=== PATIENT | male | born 1985 | race Caucasian/White ===

== ENCOUNTER 2016-11-30 00:30 | Emergency (ER) | payer MEDICAID ==
[~2016-11-30] VITALS: Ht 185.4 cm; Wt 110.0 kg
[~2016-11-30 00:30] MED LIST: ALBU17I INH; IBUP800T23 PO
[2016-11-30 00:33] VITALS: BP 151/81; PULSE 126; RESP 16; TEMP 100; O2SAT 100
[2016-11-30] MEDS ORDERED: SODIUM CHLOR 0.9% 1000 ML INJ 1,000 ML IV ONE (01:00)
[2016-11-30 01:21] LABS: AUTOMATED NEUTROPHIL # 6.5 TH/MM3 (1.8-7.7); BASOPHIL # 0.1 TH/MM3 (0-0.2); BASOPHIL % 0.5 % (0.0-2.0); EOSINOPHIL % 0.4 % (0.0-4.0); HEMATOCRIT 46.9 % (39.0-51.0); HEMO FLAGS DIFF FINAL; LYMPH % 30.5 % (9.0-44.0); LYMPHOCYTE # 3.1 TH/MM3 (1.0-4.8); MEAN CELL VOLUME 89.1 FL (80.0-100.0); MEAN CORPUSCULAR HEMOGLOBIN 31.2 PG (27.0-34.0); NEUT % 64.6 % (16.0-70.0); PLATELET COUNT 157 TH/MM3 (150-450); RED BLOOD COUNT 5.26 MIL/MM3 (4.50-5.90); RED CELL DISTRIBUTION WIDTH 12.7 % (11.6-17.2); WHITE BLOOD COUNT 10.1 TH/MM3 (4.0-11.0)
[2016-11-30 01:26] LABS: ALCOHOL LESS THAN 3 MG/DL (0-5); ANION GAP 8 MEQ/L (5-15); BICARBONATE 27.3 MEQ/L (21.0-32.0); BLOOD UREA NITROGEN 18 MG/DL (7-18); CHLORIDE 106 MEQ/L (98-107); GLOMERULAR FILTRATION RATE 83 ML/MIN (>89); POTASSIUM 3.8 MEQ/L (3.5-5.1); SODIUM (NA) 141 MEQ/L (136-145)
--- NOTE | 2016-11-30 01:44 | PD ---
HPI Chief Complaint: Psychiatric Symptoms Time Seen by Provider: 00:46 Travel History International Travel<30 days: No Contact w/Intl Traveler<30days: No Traveled to known affect area: No History of Present Illness HPI 31-year-old male with history of bipolar, not on medication, presents to emergency department requesting psychiatric resources. Patient states he has been dealing with depression and anger for a long time. Denies suicidal or homicidal ideations, but would like some information on resources. He states that he is very anxious being here. He does smoke marijuana and tobacco cigarettes. He has no medical symptoms to report. PFSH Past Medical History Asthma: Yes (SPORTS INDUCED) Bipolar Disorder: Yes Psychiatric: Yes (ODD) Respiratory: Yes (asthma) Tetanus Vaccination: Unknown Influenza Vaccination: No Past Surgical History Tonsillectomy: Yes (T&A) Social History Alcohol Use: Yes Tobacco Use: Yes Substance Use: Yes Allergies-Medications (Allergen,Severity, Reaction): Coded Allergies: haloperidol (Unverified Allergy, Severe, 10/20/16) ziprasidone (Verified Allergy, Unknown, 11/30/16) Reported Meds & Prescriptions Reported Meds & Active Scripts Active Ibuprofen 800 Mg Tab 800 Mg PO TID PRN Reported Proventil Mdi (Albuterol Sulfate) 17 Gm Aero 1 Puff INH Review of Systems Except as stated in HPI: all other systems reviewed are Neg Physical Exam Narrative GENERAL: Well-nourished male patient, in no acute distress. SKIN: Focused skin assessment warm/dry. HEAD: Atraumatic. Normocephalic. EYES: Pupils equal and round. No scleral icterus. No injection or drainage. ENT: No nasal bleeding or discharge. Mucous membranes pink and moist. NECK: Trachea midline. No JVD. CARDIOVASCULAR: Tachycardic rate and rhythm. No murmur appreciated. RESPIRATORY: No accessory muscle use. Clear to auscultation. Breath sounds equal bilaterally. GASTROINTESTINAL: Abdomen soft, non-tender, nondistended. Hepatic and splenic margins not palpable. MUSCULOSKELETAL: No obvious deformities. No clubbing. No cyanosis. No edema. NEUROLOGICAL: Awake and alert. No obvious cranial nerve deficits. Motor grossly within normal limits. Normal speech. PSYCHIATRIC: Appropriate mood and affect; insight and judgment normal. Data Data Last Documented VS Vital Signs Date Time Temp Pulse Resp B/P (MAP) Pulse Ox O2 Delivery O2 Flow Rate FiO2 11/30/16 01:59 92 20 97 Room Air 11/30/16 00:33 100.0 Orders Orders Complete Blood Count With Diff (11/30/16 00:46) Basic Metabolic Panel (Bmp) (11/30/16 00:46) Iv Access Insert/Monitor (11/30/16 00:46) Ecg Monitoring (11/30/16 00:46) Drug Screen, Random Urine (11/30/16 00:46) Alcohol (Ethanol) (11/30/16 00:46) Sodium Chlor 0.9% 1000 Ml Inj (Ns 1000 M (11/30/16 01:00) Labs Laboratory Tests Test 11/30/16 01:00 11/30/16 01:05 White Blood Count 10.1 TH/MM3 Red Blood Count 5.26 MIL/MM3 Hemoglobin 16.4 GM/DL Hematocrit 46.9 % Mean Corpuscular Volume 89.1 FL Mean Corpuscular Hemoglobin 31.2 PG Mean Corpuscular Hemoglobin Concent 35.0 % Red Cell Distribution Width 12.7 % Platelet Count 157 TH/MM3 Mean Platelet Volume 9.0 FL Neutrophils (%) (Auto) 64.6 % Lymphocytes (%) (Auto) 30.5 % Monocytes (%) (Auto) 4.0 % Eosinophils (%) (Auto) 0.4 % Basophils (%) (Auto) 0.5 % Neutrophils # (Auto) 6.5 TH/MM3 Lymphocytes # (Auto) 3.1 TH/MM3 Monocytes # (Auto) 0.4 TH/MM3 Eosinophils # (Auto) 0.0 TH/MM3 Basophils # (Auto) 0.1 TH/MM3 CBC Comment DIFF FINAL Differential Comment Blood Urea Nitrogen 18 MG/DL Creatinine 1.06 MG/DL Random Glucose 112 MG/DL Calcium Level 9.0 MG/DL Sodium Level 141 MEQ/L Potassium Level 3.8 MEQ/L Chloride Level 106 MEQ/L Carbon Dioxide Level 27.3 MEQ/L Anion Gap 8 MEQ/L Estimat Glomerular Filtration Rate 83 ML/MIN Ethyl Alcohol Level LESS THAN 3 MG/DL Urine Opiates Screen NEG Urine Barbiturates Screen NEG Urine Amphetamines Screen NEG Urine Benzodiazepines Screen NEG Urine Cocaine Screen NEG Urine Cannabinoids Screen POS MDM Medical Decision Making Medical Screen Exam Complete: Yes Emergency Medical Condition: Yes Medical Record Reviewed: Yes Differential Diagnosis Mood disorder versus personality disorder versus adjustment reaction disorder Narrative Course 31-year-old male presents to emergency department for evaluation, requesting psychiatric resources. Patient appears without distress. He is tachycardic. He is given IV normal saline fluid bolus. Lab work is without acute concern. He is medically cleared for any type of psychiatric facility if he wishes to go at this time. He is not suicidal nor is he homicidal. He is provided a packet of resources. He agrees to return immediately with any acute worsening of symptoms. Diagnosis Primary Impression: Adjustment reaction Qualified Codes: F43.23 - Adjustment disorder with mixed anxiety and depressed mood Referrals: [facility] (Out patient) Primary Care Physician Patient Instructions: General Instructions, Medical Clearance for Psychiatric Care (ED) Additional Instructions: UTILIZE RESOURCES TO CALL AND MAKE AN APPOINTMENT FOR FOLLOW UP FOLLOW UP WITH YOUR PRIMARY CARE PROVIDER RETURN IMMEDIATELY WITH ANY ACUTE WORSENING OF SYMPTOMS Med/Other Pt SpecificInfo: No Change to Meds Disposition: 01 DISCHARGE HOME Condition: Stable RandDafne MOSER Nov 30, 2016 01:44
[2016-11-30 01:59] VITALS: PULSE 92; RESP 20; O2SAT 97
== END 2016-11-30 03:15 | disposition home or self-care (01) ==
LOC: NEPD 00:30
DX: F43.23 Adjustment disorder with mixed anxiety and depressed mood (principal); J45.990 Exercise induced bronchospasm
CPT/HCPCS: 80048; 80307; 85025; 99283; J7030